=== PATIENT | male | born 1985 | race Caucasian/White ===

== ENCOUNTER 2021-10-13 11:59 | Emergency (ER) | payer SELFPAY ==
[2021-10-13 12:08] VITALS: BP 134/74; PULSE 93; TEMP 98.1; BMI 32.4
[2021-10-13 13:10] LABS: BASO % 0.7 % (0-2.0); EOS % 1.3 % (0-4.5); HEMATOCRIT 44.5 % (35.4-49); HEMOGLOBIN 15.4 GM/dL (11.7-16.9); LYMPH % 23.4 % (8-40); MCH 30.8 pg (25.7-33.7); MCHC 34.7 g/dl (32.0-35.9); MEAN CELL VOLUME 88.9 fl (80-96); MONO % 9.3 % (3.8-10.2); NEUT % 65.3 % (42.8-82.8); PLATELET COUNT 292 10^3/uL (134-434); RBC 5.01 M/mm3 (4.00-5.60); RDW 13.7 % (11.9-15.9); WHITE BLOOD COUNT 9.8 K/mm3 (4.0-10.0)
== END 2021-10-13 13:40 | disposition home or self-care (01) ==
LOC: JER 11:59
DX: K62.5 Hemorrhage of anus and rectum (principal)
CPT/HCPCS: 36415; 82272; 85025; 99283-25